=== PATIENT | female | born 1955 | race Caucasian/White ===

== ENCOUNTER 2018-06-04 08:04 | Day surgery (SDC) | payer OTHER ==
[2018-06-04] MEDS ORDERED: CYCLOPENTOLATE 1% OPTH 2 ML ONE (08:48)
[2018-06-04] MEDS ORDERED: LIDOCAINE 2% MPF 5 ML VIAL ONE (08:48)
[2018-06-04] MEDS ORDERED: NA CHLORIDE 0.9% 500 ML ONE (08:50)
[2018-06-04] MEDS ORDERED: BALANCED SALT IRRIG PLAIN 500 ML BTL IRR ONE (09:00)
[2018-06-04] MEDS ORDERED: EPINEPHRINE/PF 1 MG/ML AMP ONE (09:00)
[2018-06-04] MEDS ORDERED: DUOVISC 1 KIT OPTH ONE (09:00)
[2018-06-04] MEDS ORDERED: NS 0.9% VIAL 10 ML ONE (09:00)
[2018-06-04] MEDS ORDERED: MOXIFLOXACIN HCL 10 DROPS/ML **OR USE OPTH ONE (09:02)
[2018-06-04] MEDS: TETRACAINE HCL 0.5% 2ML OPTH ONE ×2 (09:31→09:46)
[2018-06-04] MEDS: LIDOCAINE 1% MPF 2 ML AMPULE ONE ×2 (09:32→09:46)
[2018-06-04] MEDS: BUPIVACAINE 0.25% PF 10 ML VIAL ONE ×2 (09:32→09:46)
[2018-06-04] MEDS ORDERED: PROPOFOL 200 MG/20 ML VIAL IV ONE (09:34)
[2018-06-04] MEDS ORDERED: LIDOCAINE 1% MPF 2 ML AMPULE ONE (10:05)
--- NOTE | 2018-06-04 10:25 | P.BOP ---
Preoperative diagnosis: Nuclear sclerotic and anterior subcapsular cataract OS Postoperative diagnosis: Same Primary procedure: Phacoemulsification with multifocal IOL OS Estimated blood loss: None Anesthesia: Local (Subtenon's infusion with anesthesia for cataract surgery) Complications: None Implants: [id number] Symfony +23.5 Transferred to: Other (Day surgery) Condition: Good
--- NOTE | 2018-06-04 12:15 | OP ---
Date of Procedure: 06/04/2018 Surgeon: Madeleine Jay MD Anesthesiologist: 1. David Mohamud CRNA. 2. Min Ribeiro M.D. Preoperative Diagnoses: Nuclear sclerotic cataract and anterior subcapsular cataract OS (left eye). Operation Performed: Phacoemulsification with multifocal intraocular lens implant, OS (left eye). Anesthesia: Per cataract surgery. Complications: None. Description Of Procedure: In day surgery, the patient was prepped with Betadine and draped. A conju nctival incision was made in the inferior nasal quadrant with Nichol scissors. A sub-Tenon block c onsisting of a 1:1 mixture of 2% Xylocaine and 0.25% bupivacaine was placed through the conjunctival incision with a blunt cannula. A Honan balloon was placed over the eye and the patient was transferr ed to the operating room. In the operating room the patient was prepped and draped in the usual sterile fashion for ophthalmic surgery. A lid speculum was placed in the left eye. Two paracentesis sites were made superiorly and inferiorly in the limbal cornea. Viscoat was placed in the anterior chamber and a crescent blade wa s used to make a corneal groove and tunnel, and a keratome was used to enter the anterior chamber. P rovisc was placed in the anterior chamber and a 360 degree capsulotomy was performed with a cystitome . The lens was hydrodissected with BSS and rotated freely. The lens was removed with a stop and cho p technique. A 16.75 Phaco CDE was used to remove the lens. Residual cortex was removed with the ir rigation and aspiration. Provisc was placed in the capsular bag. A ZXR00 +23.5 lens was placed in t he capsular bag without complications. Irrigation and aspiration was used to remove residual viscoel astic. The paracentesis sites were hydrated with BSS. The wound and paracentesis sites were inspect ed and found to be watertight. Vigamox 0.07 cc was placed intracamerally at the end of the procedure . The eye was irrigated with balanced salt solution. The eye was patched with a soft cotton patch a nd Wharton metal shield. The patient was returned to day surgery in good condition. Discharge Instructions: The patient was discharged to home in good condition and is to follow up radha Jay in the morning. JHL/MODL Voice ID: [id number] Report ID: [id number]
== END 2018-06-04 10:52 | disposition home or self-care (01) ==
LOC: OR 08:04
PROVIDERS: ATTEND Ophthalmology Retina Specialist
PROC: 08RK3JZ Replacement of Left Lens with Synthetic Substitute, Percutaneous Approach (ICD-10-PCS; principal; 2018-06-04 09:30)
DX: H25.12 Age-related nuclear cataract, left eye (principal); H25.032 Anterior subcapsular polar age-related cataract, left eye; E78.5 Hyperlipidemia, unspecified; E11.36 Type 2 diabetes mellitus with diabetic cataract; Z88.1 Allergy status to other antibiotic agents
CPT/HCPCS: 82962; J0171; J2001

== ENCOUNTER 2018-07-09 10:49 | Day surgery (SDC) | payer OTHER ==
[2018-07-09] MEDS ORDERED: LIDOCAINE 2% MPF 5 ML VIAL ONE ×2 (11:14→11:47)
[2018-07-09] MEDS ORDERED: BUPIVACAINE 0.25% PF 10 ML VIAL ONE (11:14)
[2018-07-09] MEDS ORDERED: NA CHLORIDE 0.9% 500 ML ONE (11:15)
[2018-07-09] MEDS: PHENYLEPHRINE 10% OPTH 5ML ONE ×3 (11:20→11:30)
[2018-07-09] MEDS: CYCLOPENTOLATE 1% OPTH 2 ML ONE ×3 (11:20→11:30)
[2018-07-09] MEDS ORDERED: NS 0.9% VIAL 10 ML ONE (11:31)
[2018-07-09] MEDS ORDERED: PROPOFOL 200 MG/20 ML VIAL IV ONE (11:47)
[2018-07-09] MEDS: TETRACAINE HCL 0.5% 2ML OPTH ONE ×2 (12:08→12:15)
[2018-07-09] MEDS: MOXIFLOXACIN HCL 10 DROPS/ML **OR USE OPTH ONE ×2 (12:11→12:19)
[2018-07-09] MEDS: DUOVISC 1 KIT OPTH ONE ×2 (12:11→12:19)
[2018-07-09] MEDS: EPINEPHRINE/PF 1 MG/ML AMP ONE ×2 (12:11→12:19)
[2018-07-09] MEDS: BALANCED SALT IRRIG PLAIN 500 ML BTL IRR ONE ×2 (12:11→12:19)
--- NOTE | 2018-07-09 12:59 | P.BOP ---
Preoperative diagnosis: Nuclear sclerotic cataract and regular astigmatism OD Postoperative diagnosis: Same Primary procedure: Phacoemulsification with multifocal toric OD Estimated blood loss: none Anesthesia: Local (Subtenon's infusion with anesthesia for cataract surgery) Complications: None Implants: [id number] +23.5 Transferred to: Other (Day surgery) Condition: Good
[2018-07-09] MEDS ORDERED: ONDANSETRON 4 MG/2 ML VIAL ONE (13:07)
--- NOTE | 2018-07-10 00:19 | OP ---
Date of Procedure: 07/09/2018 Surgeon: Madeleine Jay MD Anesthesiologist: 1. David Yu C.R.N.A. 2. Floyd Loomis M.D. Preoperative Diagnosis: Nuclear sclerotic cataract and regular astigmatism, right eye. Operation Performed: Phacoemulsification with intraocular lens implant, right eye. Anesthesia: Per cataract surgery. Complications: None. Description Of Procedure: In day surgery, the patient was prepped with Betadine and draped. A conju nctival incision was made in the inferior nasal quadrant with Nichol scissors. A sub-Tenon block c onsisting of a 1:1 mixture of 2% Xylocaine and 0.25% bupivacaine was placed through the conjunctival incision with a blunt cannula. A Honan balloon was placed over the eye and the patient was transferr ed to the operating room. In the operating room the patient was prepped and draped in the usual sterile fashion for ophthalmic surgery. A lid speculum was placed in the right eye. Two paracentesis sites were made superiorly an d inferiorly in the limbal cornea. Viscoat was placed in the anterior chamber and a crescent blade w as used to make a corneal groove and tunnel, and a keratome was used to enter the anterior chamber. Provisc was placed in the anterior chamber and a 360 degree capsulotomy was performed with a cystitom e. The lens was hydrodissected with BSS and rotated freely. The lens was removed with a stop and ch op technique. A 17.79 phaco CDE was used to remove the lens. Residual cortex was removed with the i rrigation and aspiration. Provisc was placed in the capsular bag. A [id number] +23.5 at 149 degrees subhash s was placed in the capsular bag without complications. Irrigation and aspiration was used to remove residual viscoelastic. The paracentesis sites were hydrated with BSS. The wound and paracentesis s ites were inspected and found to be watertight. Vigamox 0.07 cc was placed intracamerally at the end of the procedure. The eye was irrigated with balanced salt solution. The eye was patched with a so ft cotton patch and Wharton metal shield. The patient was returned to day surgery in good condition. Discharge Instructions: Ms. Arnett is discharged to home in good condition and is to follow up [facility] Dr. Jay in the morning. JHL/MODL Voice ID: [id number] Report ID: [id number]
== END 2018-07-09 13:30 | disposition home or self-care (01) ==
LOC: OR 10:49
PROVIDERS: ATTEND Ophthalmology Retina Specialist
PROC: 08RJ3JZ Replacement of Right Lens with Synthetic Substitute, Percutaneous Approach (ICD-10-PCS; principal; 2018-07-09 11:00)
DX: H25.11 Age-related nuclear cataract, right eye (principal); H52.221 Regular astigmatism, right eye; E78.5 Hyperlipidemia, unspecified; E11.9 Type 2 diabetes mellitus without complications; Z79.82 Long term (current) use of aspirin; Z88.1 Allergy status to other antibiotic agents; Z83.518 Family history of other specified eye disorder; Z82.49 Family history of ischemic heart disease and other diseases of the circulatory system
CPT/HCPCS: 82962; J0171; J2405; V2787